=== PATIENT | female | born 1995 | race Two or more races ===

== ENCOUNTER 2024-08-26 15:52 | Emergency (ER) | payer MEDICAID ==
[~2024-08-26] VITALS: Ht 170.2 cm; Wt 45.4 kg
[2024-08-26] MEDS ORDERED: ONDANSETRON 4 MG/2 ML VIAL ONE ×2 (16:44→20:14)
[2024-08-26] MEDS ORDERED: HYDROMORPHONE 1 MG/1 ML DISP.SYRIN ONE ×2 (16:44→20:14)
[2024-08-26] MEDS: LORAZEPAM 2 MG/1 ML VIAL IV ONE (16:45)
[2024-08-26] MEDS: ONDANSETRON 4 MG/2 ML VIAL IV ONE ×2 (16:45→20:22)
[2024-08-26] MEDS ORDERED: LORAZEPAM 2 MG/1 ML VIAL ONE (16:45)
[2024-08-26] MEDS: HYDROMORPHONE 1 MG/1 ML DISP.SYRIN IV ONE ×2 (16:45→20:28)
[2024-08-26] MEDS: IV NORMAL SALINE 1000 ML BAG IV ONE (17:00)
[2024-08-26 17:02] LABS: BASOPHILS % (AUTO) 0.4 % (0.0-2.0); EOSINOPHILS % (AUTO) 0.1 % (0.0-7.0); HEMATOCRIT 36.3 % (31.2-41.9); HEMOGLOBIN 12.9 g/dL (10.9-14.3); LYMPHOCYTES # (AUTO) 0.6 K/uL (0.8-4.8); LYMPHOCYTES % (AUTO) 10.4 % (20.5-51.5); MEAN CORPUSCULAR HEMOGLOBIN 29.7 uug (24.7-32.8); MEAN CORPUSCULAR HGB CONC 36 g/dL (32.3-35.6); MEAN CORPUSCULAR VOLUME 83.6 fL (75.5-95.3); MONOCYTES # (AUTO) 0.2 K/uL (0.1-1.30); MONOCYTES % (AUTO) 4.1 % (0.0-11.0); NEUTROPHILS # (AUTO) 4.7 K/uL (1.8-8.9); PLATELET COUNT (AUTO) 212 K/uL (179-408); RED BLOOD CELL COUNT(AUTO) 4.35 MIL/uL (3.63-4.92); RED CELL DISTRIBUTION WIDTH 12.7 % (12.3-17.7); WHITE BLOOD COUNT (AUTO) 5.5 K/uL (3.8-11.8)
[2024-08-26 17:06] LABS: DIFFERENTIAL COMMENT 1
[2024-08-26 17:10] LABS: CALCIUM 9.7 mg/dL (8.5-10.1); CREATININE 0.6 mg/dL (0.6-1.3); POTASSIUM 3.2 mmol/L (3.5-5.1)
[2024-08-26] MEDS: POTASSIUM BICARBONATE/CIT AC 25 MEQ TABLET.EFF PO ONE (18:00)
[2024-08-26] MEDS ORDERED: POTASSIUM BICARBONATE/CIT AC 25 MEQ TABLET.EFF ONE (18:33)
[2024-08-26] MEDS ORDERED: HYDR-4209 PO (19:49)
[2024-08-26] MEDS ORDERED: ONDA4TAB11 PO (19:49)
[2024-08-26 21:12] VITALS: BP 121/65; TEMP 98; O2SAT 99
== END 2024-08-26 20:50 | disposition home or self-care (01) ==
LOC: ER 16:28
DX: O36.4XX0 Maternal care for intrauterine death, not applicable or unspecified (principal); O26.891 Other specified pregnancy related conditions, first trimester; E87.6 Hypokalemia; R10.2 Pelvic and perineal pain; Z3A.08 8 weeks gestation of pregnancy; Z37.9 Outcome of delivery, unspecified
CPT/HCPCS: 36415; 76856; 85025; 86850; 86900; 86901; A4606; A4663; J1171; J2060; J2405; J7040